=== PATIENT | female | born 1965 | race Caucasian/White ===

== ENCOUNTER 2021-09-03 12:15 | Outpatient (CLI) | payer BC | END 2021-09-03 12:16 | disposition home or self-care (01) | LOC: SCSRAD 12:15 | PROVIDERS: ATTEND Family Medicine | DX: Z01.818 Encounter for other preprocedural examination (principal) | CPT/HCPCS: 71046; 80053; 80061; 81001; 82306; 83036; 84439; 84443; 85025; 85610; 85730 ==